=== PATIENT | male | born 1985 | race Caucasian/White ===

== ENCOUNTER → 2020-03-11 | Emergency (ER) | payer BC ==
[~2020-03-11] VITALS: Ht 188 cm; Wt 90.7 kg
[~2020-03-11] MED LIST: BACTRIM DS TAB1 EACH PO; KEFLEX500 MG PO
== END ==
LOC: ED 13:15
DX: S31.31XA Laceration without foreign body of scrotum and testes, initial encounter (principal); X58.XXXA Exposure to other specified factors, initial encounter
CPT/HCPCS: 12032; 90471; 90715; 99282-25; J0561